=== PATIENT | male | born 1930 | race Caucasian/White ===

== ENCOUNTER 2017-09-03 21:32 | Emergency (ER) | payer MEDICARE ==
[~2017-09-03] VITALS: Ht 185.4 cm; Wt 86.2 kg
--- NOTE | 2017-09-03 21:39 | Emergency Room Report ---
History of Present Illness General Chief Complaint: Altered Level of Consciousness Source: Patient, EMS Present Illness HPI Is an 86-year-old male who probably have dementia. He was brought in by EMS after witnessed fall by bystander. He said he hit his head. EMS said that he seemed to be little bit confused. Patient unable to give his name and address but it was a wrong address. No active trauma. No headache, fever chills nausea or vomiting. Allergies: Coded Allergies: UNABLE TO ASSESS (Unverified , 09/03/17) Patient is confused Patient History Past Medical History: see triage record, old chart reviewed Past Surgical History: unable to obtain Pertinent Family History: unable to obtain Social History: Denies: smoking Immunizations: other Reviewed Nursing Documentation: PMH: Agreed; PSxH: Agreed Nursing Documentation-PMH Hx Cardiac Problems: Yes Review of Systems Eye: Denies: eye pain, blurred vision ENT: Denies: ear pain, nose congestion, throat swelling Respiratory: Denies: cough, shortness of breath Cardiovascular: Denies: chest pain, palpitations Gastrointestinal: Denies: abdominal pain, diarrhea, nausea, vomiting Musculoskeletal: Denies: back pain, joint pain Skin: Denies: rash Neurological: Denies: headache, numbness Endocrine: Denies: increased thirst, increased urine Hematologic/Lymphatic: Denies: easy bruising All Other Systems: negative except mentioned in HPI Physical Exam Vital Signs Date Time Temp Pulse Resp B/P (MAP) Pulse Ox O2 Delivery O2 Flow Rate FiO2 09/03/17 21:33 97.6 64 18 153/56 98 Room Air 97.5 vitals with high blood pressure Sp02 EP Interpretation: reviewed, normal General Appearance: well appearing, no apparent distress, alert Head: normocephalic, atraumatic Eyes: bilateral eye PERRL, bilateral eye EOMI ENT: hearing grossly normal, normal pharynx Neck: full range of motion, supple, no meningismus Respiratory: chest non-tender, lungs clear, normal breath sounds Cardiovascular #1: regular rate, rhythm, no murmur Gastrointestinal: normal bowel sounds, non tender, no mass, no organomegaly, no bruit, non-distended Musculoskeletal: back normal, gait/station normal, normal range of motion Neurologic: alert, other - patient is oriented , oriented Psychiatric: mood/affect normal Skin: warm/dry Medical Decision Making Diagnostic Impression: Primary Impression: Altered level of consciousness Additional Impression: Head injury, acute Qualified Codes: S09.90XA - Unspecified injury of head, initial encounter ER Course Patient present with altered mental status. He was a missing person. We able to contact family and his nuclear logging engineer came to pick him up. The story was his son picked him up to go eat. He was supposed to call his nuclear logging engineer to picked him up but he never did. When the nuclear logging engineer called the son, he was nervous and does not know where his father was. According to nuclear logging engineer, the son appeared to be developing dementia also. His called from [facility]. I also spoke with his doctor who called. Patient has dementia and this has happened before. There is no injury. We'll discharge home. CT/MRI/US Diagnostic Results CT/MRI/US Diagnostic Results : Imaging Test Ordered: CT head Impression atrophy per radiologist Last Vital Signs Date Time Temp Pulse Resp B/P (MAP) Pulse Ox O2 Delivery O2 Flow Rate FiO2 09/03/17 21:33 97.6 64 18 153/56 98 Room Air 97.5 Status: unchanged Disposition: HOME, SELF-CARE Condition: Stable Additional Instructions: follow-up your doctor in 7 days. Recommend getting a tracking device. Return if worse. SANJU GUILLEN M.D. Sep 03, 2017 21:39
[2017-09-03 22:00] VITALS: BP 153/56
[2017-09-03 23:00] VITALS: BP 153/56
--- NOTE | 2017-09-05 13:39 | Diagnostic Imaging Report ---
Indication: Trauma, status post fall Technique: spiral acquisitions obtained through the brain. Angled axial and coronal 5 x 5 mm slices were reconstructed. No IV contrast utilized. Radiation dose was minimized using automated exposure control Total dose length product 1456.69 mGycm. CTDIvol(s) 70.38 mGy Comparison: none FINDINGS: No acute hemorrhage or edema. No mass effect or midline shift. There is age-related enlargement of the ventricles and extra axial CSF spaces. There is periventricular deep white matter ischemic change. Normal causey-white differentiation. There is evidence of prior bilateral cataract surgery. Visualized sinuses are unremarkable. Intact calvarium. There is trace fluid in the right mastoid IMPRESSION: Chronic and age-related changes. Negative for acute intracranial bleed or mass effect This agrees with the preliminary interpretation provided overnight by [facility]erad[facility] service. The CT scanner at [facility] is accredited by the [employer] and the scans are performed using protocols designed to limit radiation exposure to as low as reasonably achievable to attain images of sufficient resolution adequate for diagnostic evaluation
== END 2017-09-03 23:00 | disposition home or self-care (01) ==
LOC: EDBD 21:32 → EMR 22:02
DX: R41.82 Altered mental status, unspecified (principal); S09.90XA Unspecified injury of head, initial encounter; W19.XXXA Unspecified fall, initial encounter; Y92.9 Unspecified place or not applicable; F03.90 Unspecified dementia, unspecified severity, without behavioral disturbance, psychotic disturbance, mood disturbance, and anxiety
CPT/HCPCS: 70450; 99284